=== PATIENT | female | born 1990 | race African-American/Black ===

== ENCOUNTER 2021-06-03 16:55 | Emergency (ER) | payer OTHER ==
[2021-06-03] MEDS ORDERED: HYDROcodone/Acetaminophen 10/325 mg Tablet ONE (18:28)
== END 2021-06-03 18:48 | disposition home or self-care (01) ==
LOC: CSHERS 16:55
DX: K02.9 Dental caries, unspecified (principal); F17.210 Nicotine dependence, cigarettes, uncomplicated
CPT/HCPCS: 99283

== ENCOUNTER 2022-01-23 09:50 | Emergency (ER) | payer OTHER | END 2022-01-23 10:55 | disposition home or self-care (01) | LOC: CSHERS 09:50 | DX: J06.9 Acute upper respiratory infection, unspecified (principal); Z20.822 Contact with and (suspected) exposure to COVID-19 | CPT/HCPCS: 99283 ==

== ENCOUNTER 2022-05-01 15:15 | Inpatient (IN) | payer OTHER ==
[~2022-05-01 15:15] MED LIST: Bupivacaine/Epinephrine 0.25% 30 ML VIAL ONE
[2022-05-01] MEDS ORDERED: Butorphanol Tartrate 1 MG/ML VIAL SLOW IVP PRN (16:29)
[2022-05-01] MEDS ORDERED: Promethazine HCl 25 MG/ML VIAL IM PRN (16:29)
[2022-05-01] MEDS ORDERED: Ibuprofen 800 MG TAB PO PRN (16:29)
[2022-05-01] MEDS ORDERED: Lidocaine 1% (PF) 30 ML VIAL SC PRN (16:29)
[2022-05-01] MEDS ORDERED: Carboprost 250 MCG/ML AMP IM PRN (16:29)
[2022-05-01] MEDS ORDERED: Acetaminophen 500 MG TAB PO PRN (16:29)
[2022-05-01] MEDS ORDERED: Misoprostol 200 MCG TAB PR PRN (16:29)
[2022-05-01] MEDS ORDERED: Ondansetron PF 4 MG/2 ML Vial IVP PRN (16:29)
[2022-05-01] MEDS ORDERED: hydrALAZINE 20 MG/ML VIAL SLOW IVP PRN (16:29)
[2022-05-01] MEDS ORDERED: HYDROcodone/Acetaminophen 5/325 mg Tablet PO PRN (16:29)
[2022-05-01] MEDS ORDERED: Diphenoxylate HCl/Atropine Tablet PO PRN (16:29)
[2022-05-01] MEDS ORDERED: Methylergonovine 0.2 MG/ML VIAL IM PRN (16:29)
[2022-05-01] MEDS ORDERED: Penicillin G Potassium 5 MILL.UNITS in Sodium Chloride 0.9% 100 ML IVPB SCH (16:30)
[2022-05-01] MEDS ORDERED: NS w/ Oxytocin 30 units 500 ML IV SCH ×2 (16:30)
[2022-05-01 16:49] VITALS: BMI 29.0
[2022-05-01] MEDS ORDERED: Misoprostol 100 MCG TAB PO SCH ×2 (17:00→21:30)
[2022-05-01 17:06] LABS: Hemoglobin 11.6 g/dL (12.0-15.5); Mean Corpuscular Hemoglobin 29.6 pg (27.0-33.0); Mean Platelet Volume 10.8 fl (7.4-10.4); Platelet Count 214 10x3/uL (150-450); RBC Distribution Width 13.8 % (11.5-14.5); Red Blood Cell (RBC) Count 3.92 10x6/uL (3.90-5.03); White Blood Cell (WBC) Count 6.5 10x3/uL (3.5-10.5)
[2022-05-01 17:20] LABS: HBSAg Index 0.18 S/CO (0-0.99); Hep B Surf Ag Non-Reactive S/CO (NonReactive); Syphilis Antibody Nonreactive (Nonreactive); Syphilis Antibody Index 0.06 S/CO (<1.00 Non-Reactive)
[2022-05-01 18:07] LABS: SARS-CoV-2 NAA Rapid Test Not Detected (NotDetected)
[2022-05-01] MEDS: Lactated Ringer's 1,000 ML IV SCH (18:23)
[2022-05-01] MEDS: Penicillin G 2.5 MILL.units 2.5 MILL.UNITS in Premix Bag 1 BAG IVPB SCH (22:42)
[2022-05-02] MEDS ORDERED: Misoprostol 100 MCG TAB PO SCH (03:30)
[2022-05-02] MEDS: Penicillin G 2.5 MILL.units 2.5 MILL.UNITS in Premix Bag 1 BAG IVPB SCH (03:40)
[2022-05-02] MEDS ORDERED: Fentanyl 2 mcg/Bup 0.1% Cadd 100 ML ONE (04:38)
[2022-05-02] MEDS ORDERED: diphenhydrAMINE 50 MG/ML VIAL IVP PRN (05:15)
[2022-05-02] MEDS ORDERED: Moisturizing Cream (Eucerin) 113 GM JAR TOP PRN (05:15)
[2022-05-02] MEDS ORDERED: Ondansetron PF 4 MG/2 ML Vial IVP PRN ×2 (05:15→10:03)
[2022-05-02] MEDS ORDERED: Naloxone HCl 0.4 mg/ml Vial IVP PRN ×2 (05:15)
[2022-05-02] MEDS ORDERED: ePHEDrine Sulfate 50 MG/10 ML VIAL SLOW IVP PRN (05:15)
[2022-05-02] MEDS ORDERED: Fentanyl 2 mcg/Bupivacaine 0.1% Cassette 100 ML EPIDURAL SCH (05:15)
[2022-05-02] MEDS ORDERED: Lactated Ringer's 500 ML IV PRN (05:15)
[2022-05-02] MEDS ORDERED: Promethazine HCl 25 MG/ML VIAL IM PRN ×2 (05:15→10:03)
[2022-05-02] MEDS ORDERED: Acetaminophen 325 MG TAB PO PRN (05:15)
[2022-05-02] MEDS ORDERED: Communication Order-Pharmacy FS SCH (05:15)
[2022-05-02] MEDS: Lactated Ringer's 1,000 ML IV SCH (06:03)
[2022-05-02] MEDS ORDERED: Boostrix 0.5 ML (Tdap) VIAL (>/=7 yrs of age) IM ONE (10:03)
[2022-05-02] MEDS ORDERED: hydrALAZINE 20 MG/ML VIAL SLOW IVP PRN (10:03)
[2022-05-02] MEDS ORDERED: diphenhydrAMINE 25 MG CAP PO PRN (10:03)
[2022-05-02] MEDS ORDERED: Lanolin Ointment 7 GM TUBE TOP PRN (10:03)
[2022-05-02] MEDS ORDERED: Milk Of Magnesia 30 ML UDCUP PO PRN (10:03)
[2022-05-02] MEDS ORDERED: Bisacodyl 10 MG SUPP PR PRN (10:03)
[2022-05-02] MEDS: Ferrous Sulfate 325 MG TAB PO SCH (10:11)
[2022-05-02] MEDS ORDERED: Ferrous Sulfate 325 MG TAB PO SCH (10:15)
[2022-05-02] MEDS ORDERED: Docusate 100 MG CAP PO SCH (10:15)
[2022-05-02] MEDS: HYDROcodone/Acetaminophen 5/325 mg Tablet PO PRN ×2 (10:58→18:37)
[2022-05-02] MEDS: Ibuprofen 800 MG TAB PO SCH ×2 (13:14→22:02)
[2022-05-02] MEDS: Docusate 100 MG CAP PO SCH (22:02)
[2022-05-03] MEDS: Penicillin G 2.5 MILL.units 2.5 MILL.UNITS in Premix Bag 1 BAG IVPB SCH (02:17)
[2022-05-03] MEDS: Lactated Ringer's 1,000 ML IV SCH (02:17)
[2022-05-03] MEDS: Ibuprofen 800 MG TAB PO SCH ×2 (05:28→13:50)
[2022-05-03 07:55] VITALS: BP 108/57; TEMP 98.3
[2022-05-03] MEDS ORDERED: Prenatal Vitamin 1 TAB PO SCH (09:00)
[2022-05-03] MEDS: Docusate 100 MG CAP PO SCH (09:03)
[2022-05-03] MEDS: Ferrous Sulfate 325 MG TAB PO SCH (09:04)
[2022-05-03] MEDS: HYDROcodone/Acetaminophen 5/325 mg Tablet PO PRN (09:09)
== END 2022-05-03 17:00 | disposition home or self-care (01) | DRG 807 ==
LOC: CSHLD 15:15 → CSHPED 05-02 09:40
PROVIDERS: ADMIT Family Medicine; ATTEND Family Medicine
PROC: 10E0XZZ Delivery of Products of Conception, External Approach (ICD-10-PCS; principal; 2022-05-02)
PROC: 3E0P7VZ Introduction of Hormone into Female Reproductive, Via Natural or Artificial Opening (ICD-10-PCS; 2022-05-02)
DX: O36.5930 Maternal care for other known or suspected poor fetal growth, third trimester, not applicable or unspecified (principal); Z37.0 Single live birth; Z20.822 Contact with and (suspected) exposure to COVID-19; Z3A.37 37 weeks gestation of pregnancy; O99.824 Streptococcus B carrier state complicating childbirth; Z79.899 Other long term (current) drug therapy
CPT/HCPCS: 36415; 51702; 85027; 86780; 86850; 86900; 86901; 87340; J2540; J2590; J3490; J7120; U0002

== ENCOUNTER 2022-09-11 10:42 | Emergency (ER) | payer OTHER ==
[2022-09-11 11:54] LABS: Bilirubin Neg (Negative); Blood, Urine Negative (Negative); Clarity Slightly Cloudy (Clear); Glucose, Urine (Dipstick) Normal (Negative); Ketone, Urine Negative (Negative); Leukocyte 25 (Negative); Nitrite Negative (Negative); Protein, Urine (Dipstick) Negative (Neg-Trace); Urobilinogen Normal mg/dL (Less than 2)
[2022-09-11 11:58] LABS: Pregnancy Test - Urine (BHCG) Negative (Negative); Pregu Control Background? CLEAR/WHITE (CLR/WHITE); Pregu Control Bar Appear? YES (CONTROL BAR)
[2022-09-11 12:21] LABS: RBC/HPF 0-3 HPF (0-3); WBC/HPF 0-3 HPF (0-3)
[2022-09-11 12:22] LABS: Bacteria/HPF 2+ HPF (None Seen)
[2022-09-11] MEDS ORDERED: cefTRIAXone\\ROCEPHIN 500 MG VIAL ONE (12:36)
[2022-09-11] MEDS ORDERED: Sterile Water 10 ML ONE (12:36)
[2022-09-11] MEDS ORDERED: Acetaminophen 325 MG TAB ONE (12:36)
[2022-09-12 10:53] LABS: Chlamydia by PCR Not Detected (NotDetected); GC by PCR Not Detected (NotDetected)
== END 2022-09-11 12:52 | disposition home or self-care (01) ==
LOC: CSHERS 10:42
DX: R30.0 Dysuria (principal)
CPT/HCPCS: 81003; 81015; 81025; 87086; 87480; 87491; 87510; 87591; 87660; 96372; 99283; J0696

== ENCOUNTER 2023-07-01 11:29 | Emergency (ER) | payer OTHER, SELFPAY ==
[2023-07-01 12:39] LABS: Bilirubin Neg (Negative); Blood, Urine Negative (Negative); Clarity Clear (Clear); Glucose, Urine (Dipstick) Normal (Negative); Ketone, Urine Negative (Negative); Leukocyte 100 (Negative); Nitrite Negative (Negative); Protein, Urine (Dipstick) Negative (Neg-Trace); Specific Gravity, Urine 1.005 (1.005-1.030); Urobilinogen Normal mg/dL (Less than 2)
[2023-07-01 12:41] LABS: Pregnancy Test - Urine (BHCG) Negative (Negative); Pregu Control Background? CLEAR/WHITE (CLR/WHITE); Pregu Control Bar Appear? YES (CONTROL BAR); Specific Gravity 1.005 (1.002-1.036)
[2023-07-01 12:47] LABS: CAUTI Indications for Culture Dysuria,urgency,freq; WBC/HPF 0-3 HPF (0-3)
[2023-07-01 12:48] LABS: Trichomonas/HPF 2+ HPF (None Seen)
[2023-07-01 12:49] LABS: Bacteria/HPF 2+ HPF (None Seen)
[2023-07-01 12:50] LABS: Urine Culture Reflex No No
[2023-07-01] MEDS ORDERED: cefTRIAXone (ROCEPHIN) 500 MG VIAL ONE (13:09)
[2023-07-01] MEDS ORDERED: Sterile Water 10 ML ONE (13:09)
[2023-07-01 21:10] LABS: Chlamydia by PCR, Vaginal Swab Not Detected (NotDetected); GC by PCR, Vaginal Swab Not Detected (NotDetected)
== END 2023-07-01 13:30 | disposition home or self-care (01) ==
LOC: CSHERS 11:29
DX: A59.01 Trichomonal vulvovaginitis (principal)
CPT/HCPCS: 81001; 81025; 87480; 87491; 87510; 87591; 87660; 96372; 99283; J0696

== ENCOUNTER 2023-08-12 10:17 | Emergency (ER) | payer SELFPAY ==
[2023-08-12 12:05] LABS: SARS-CoV-2 NAA Rapid Test Not Detected (NotDetected)
== END 2023-08-12 12:01 | disposition home or self-care (01) ==
LOC: CSHERS 10:17
DX: J06.9 Acute upper respiratory infection, unspecified (principal)
CPT/HCPCS: 99283

== ENCOUNTER 2023-09-25 11:46 | Emergency (ER) | payer SELFPAY ==
[2023-09-25] MEDS ORDERED: Lidocaine 1% PF 5 ML VIAL ONE (13:14)
[2023-09-25] MEDS ORDERED: cefTRIAXone (ROCEPHIN) 500 MG VIAL ONE (13:14)
[2023-09-25 13:38] LABS: SARS-CoV-2 NAA Rapid Test DETECTED (NotDetected)
[2023-09-25] MEDS ORDERED: Acetaminophen 500 MG TAB ONE (13:38)
[2023-09-25 13:40] LABS: Bilirubin Neg (Negative); Blood, Urine Negative (Negative); Clarity Cloudy (Clear); Glucose, Urine (Dipstick) Normal (Negative); Ketone, Urine 5 mg/dL (Negative); Leukocyte 100 (Negative); Nitrite Negative (Negative); Protein, Urine (Dipstick) 15 mg/dl (Neg-Trace); Urobilinogen Normal mg/dL (Less than 2)
[2023-09-25 14:11] LABS: Bacteria/HPF 2+ HPF (None Seen); CAUTI Indications for Culture Pregnancy; Mucous/LPF 1+ LPF (<2+); RBC/HPF 0-3 HPF (0-3)
[2023-09-25 14:12] LABS: Urine Culture Reflex Yes Yes
[2023-09-26 02:21] LABS: Chlamydia by PCR, Vaginal Swab Not Detected (NotDetected); GC by PCR, Vaginal Swab Not Detected (NotDetected)
== END 2023-09-25 14:30 | disposition home or self-care (01) ==
LOC: CSHERS 11:46
DX: U07.1 COVID-19 (principal); N39.0 Urinary tract infection, site not specified
CPT/HCPCS: 81001; 87086; 87480; 87491; 87510; 87591; 87660; 96372; 99283; J0696

== ENCOUNTER 2023-10-18 13:23 | Emergency (ER) | payer MEDICAID, SELFPAY ==
[2023-10-18 14:13] LABS: Bilirubin Neg (Negative); Blood, Urine Negative (Negative); Clarity Clear (Clear); Glucose, Urine (Dipstick) Normal (Negative); Ketone, Urine 5 mg/dL (Negative); Leukocyte Negative (Negative); Nitrite Negative (Negative); Protein, Urine (Dipstick) Negative (Neg-Trace); Urobilinogen Normal mg/dL (Less than 2)
[2023-10-18 14:40] LABS: Bacteria/HPF Rare-Few HPF (None Seen); CAUTI Indications for Culture Pregnancy; RBC/HPF 0-3 HPF (0-3); Squamous Epithelial 0-3 HPF (0-3); WBC/HPF 0-3 HPF (0-3)
[2023-10-18 14:44] LABS: Urine Culture Reflex Yes Yes
[2023-10-18 15:37] LABS: #Eosinphils 0.1 10x3/uL (0.0-0.5); #Monocytes 0.5 10x3/uL (0.0-1.1); #Neutrophils 4.5 10x3/uL (1.5-8.4); %Basophils 0.5 % (0.0-2.0); %Eosinophils 0.9 % (0.0-6.0); %Lymphocytes 22.5 % (18.0-47.0); %Monocytes 7.7 % (0.0-10.0); %Neutrophils 68.2 % (40.0-75.0); Hematocrit 33.7 % (34.9-44.5); Hemoglobin 11.1 g/dL (12.0-15.5); Mean Corpuscular HGB CONC 32.9 g/dL (32.0-36.0); Mean Corpuscular Hemoglobin 29.1 pg (27.0-33.0); Mean Corpuscular Volume 88.5 fl (81.6-98.3); Mean Platelet Volume 9.6 fl (7.4-10.4); Platelet Count 276 10x3/uL (150-450); RBC Distribution Width 12.9 % (11.5-14.5); Red Blood Cell (RBC) Count 3.81 10x6/uL (3.90-5.03); White Blood Cell (WBC) Count 6.6 10x3/uL (3.5-10.5)
[2023-10-18] MEDS ORDERED: Ondansetron PF 4 MG/2 ML Vial ONE (15:41)
[2023-10-18] MEDS ORDERED: Acetaminophen 500 MG TAB ONE (15:42)
[2023-10-18 16:10] LABS: ALT (SGPT) 8 U/L (8-55); AST (SGOT) 12 U/L (5-34); Albumin 3.8 g/dL (3.5-5.0); Alkaline Phosphatase 44 U/L (40-110); Anion Gap 11 mmol/L (10-20); BUN (Urea Nitrogen) 8 mg/dL (7.0-18.7); Bilirubin, Total 0.3 mg/dL (0.2-1.2); Calc. Creatinine Clearance 0 mL/min (70-130); Calcium 9.2 mg/dL (7.8-10.44); Carbon Dioxide 21 mmol/L (22-29); Chloride 108 mmol/L (98-107); Estimated GFR 96; Glucose 84 mg/dL (70-105); Lipase 14 U/L (8-78); Potassium 3.5 mmol/L (3.5-5.1); Protein, Total 6.8 g/dL (6.0-8.3); Sodium 136 mmol/L (136-145)
== END 2023-10-18 16:50 | disposition home or self-care (01) ==
LOC: CSHERS 13:23
DX: O99.891 Other specified diseases and conditions complicating pregnancy (principal); R10.30 Lower abdominal pain, unspecified; R51.9 Headache, unspecified; R11.0 Nausea
CPT/HCPCS: 80053; 81001; 83690; 85025; 87086; 96374; J2405

== ENCOUNTER 2024-02-14 19:12 | Day surgery (SDC) | payer OTHER ==
[2024-02-14 19:25] VITALS: BMI 30.5
[2024-02-14] MEDS ORDERED: hydrALAZINE 20 MG/ML VIAL SLOW IVP PRN (19:33)
[2024-02-14 19:50] LABS: Bilirubin Neg (Negative); Blood, Urine Negative (Negative); Clarity Clear (Clear); Glucose, Urine (Dipstick) Normal (Negative); Ketone, Urine Negative (Negative); Leukocyte 100 (Negative); Nitrite Negative (Negative); Protein, Urine (Dipstick) 30 mg/dl (Neg-Trace); Specific Gravity, Urine 1.025 (1.005-1.030)
[2024-02-14 20:07] LABS: Bacteria/HPF 2+ HPF (None Seen); CAUTI Indications for Culture Pregnancy; RBC/HPF None Seen HPF (0-3)
[2024-02-14 20:10] LABS: Urine Culture Reflex Yes Yes
== END 2024-02-14 21:30 | disposition home or self-care (01) ==
LOC: CSHLD/OP 19:12
PROVIDERS: ATTEND Family Medicine
DX: O23.593 Infection of other part of genital tract in pregnancy, third trimester (principal); N89.8 Other specified noninflammatory disorders of vagina; Z79.899 Other long term (current) drug therapy; Z3A.29 29 weeks gestation of pregnancy
CPT/HCPCS: 81001; 87086; 87480; 87510; 87660

== ENCOUNTER 2024-07-31 10:56 | Emergency (ER) | payer OTHER ==
[2024-07-31] MEDS ORDERED: Ketorolac Tromethamine 30 MG (1 mL) VIAL ONE (12:04)
[2024-07-31] MEDS ORDERED: Lidocaine Viscous Sol 2% 15 ml UD Cup ONE (12:17)
== END 2024-07-31 12:27 | disposition home or self-care (01) ==
LOC: CSHERS 10:56
DX: K02.9 Dental caries, unspecified (principal)
CPT/HCPCS: 96372; 99282; J1885

== ENCOUNTER 2025-03-25 19:25 | Emergency (ER) | payer OTHER ==
[2025-03-25 19:54] LABS: Glucose, Urine (Dipstick) Normal (Negative); Leukocyte 25 (Negative); Protein, Urine (Dipstick) 15 mg/dl (Neg-Trace); Specific Gravity, Urine 1.030 (1.005-1.030)
[2025-03-25 19:57] LABS: Pregnancy Test - Urine (BHCG) Negative (Negative); Pregu Control Background? CLEAR/WHITE (CLR/WHITE); Pregu Control Bar Appear? YES (CONTROL BAR)
[2025-03-25 20:45] LABS: Bacteria/HPF 2+ HPF (None Seen); CAUTI Indications for Culture Dysuria,urgency,freq; RBC/HPF 0-3 HPF (0-3)
[2025-03-25 20:46] LABS: Trichomonas/HPF Rare HPF (None Seen)
[2025-03-25 20:49] LABS: Mucous/LPF 3+ LPF (<2+); Urine Culture Reflex No No
[2025-03-25] MEDS ORDERED: cefTRIAXone (ROCEPHIN) 500 MG VIAL ONE (21:14)
[2025-03-26 02:25] LABS: Chlamydia by PCR, Vaginal Swab Not Detected (NotDetected); GC by PCR, Vaginal Swab Not Detected (NotDetected)
== END 2025-03-25 21:33 ==
LOC: CSHERS 19:25
DX: N39.0 Urinary tract infection, site not specified (principal); N76.0 Acute vaginitis
CPT/HCPCS: 81001; 81025; 87480; 87491; 87510; 87591; 87660; 96372; 99283; J0696

== ENCOUNTER 2025-08-08 10:57 | Emergency (ER) | payer OTHER, SELFPAY ==
[2025-08-08 11:30] LABS: Glucose, Urine (Dipstick) Normal (Negative); Leukocyte 25 (Negative); Pregnancy Test - Urine (BHCG) Negative (Negative); Pregu Control Background? CLEAR/WHITE (CLR/WHITE); Pregu Control Bar Appear? YES (CONTROL BAR); Protein, Urine (Dipstick) Negative (Neg-Trace); Specific Gravity, Urine 1.020 (1.005-1.030)
[2025-08-08 12:02] LABS: Bacteria/HPF Rare-Few HPF (None Seen); CAUTI Indications for Culture Dysuria,urgency,freq; RBC/HPF None Seen HPF (0-3); Urine Culture Reflex No No; WBC/HPF 0-3 HPF (0-3)
[2025-08-08] MEDS ORDERED: Lidocaine 1% PF 5 ML VIAL ONE (12:47)
[2025-08-08] MEDS ORDERED: cefTRIAXone (ROCEPHIN) 500 MG VIAL ONE (12:48)
[2025-08-08 22:13] LABS: Chlam.trachomatis by PCR,Urine Not Detected (NotDetected); GC N.gonorrhoeae PCR,UrineVOID Not Detected (NotDetected)
== END 2025-08-08 13:01 | disposition home or self-care (01) ==
LOC: CSHERS 10:57
DX: R19.7 Diarrhea, unspecified (principal); R30.0 Dysuria; R11.2 Nausea with vomiting, unspecified
CPT/HCPCS: 81001; 81025; 87428; 87491; 87591; 96372; 99284; J0696